=== PATIENT | female | born 1930 | race Caucasian/White ===

== ENCOUNTER 2017-01-22 11:23 | Emergency (ER) | payer MEDICARE ==
--- NOTE | 2017-01-22 14:29 | XR ---
EXAMINATION TYPE: XR shoulder limited RT DATE OF EXAM: 01/22/2017 COMPARISON: NONE HISTORY: Pain TECHNIQUE: Two views are submitted. FINDINGS: The osseous structures are intact. There is no acute fracture or dislocation. The AC joint is maint ained. Arthropathy of the AC joint. Apical pleural thickening with calcification. IMPRESSION: 1. No acute process.
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
--- NOTE | 2017-01-22 14:37 | XR ---
EXAMINATION TYPE: XR Hip Bilateral and AP pelvis DATE OF EXAM: 01/22/2017 COMPARISON: NONE HISTORY: Pain TECHNIQUE: A single AP view of the pelvis is obtained. Two views of the bilateral hip are obtained. FINDINGS: There is no acute fracture/dislocation evident in the pelvis. The hip and sacroiliac join ts appear symmetric and unremarkable. The overlying soft tissue appears unremarkable. Two views of bilateral hip show no acute fracture or dislocation. Postsurgical change left hip and co mplete loss of joint space with remodeling of the femoral head on the right. Surgical clips and vascu lar calcification seen in the soft tissues. Degenerative change lower lumbar spine. IMPRESSION: No definite acute fracture or dislocation. If clinical suspicion is high consider a CT sc an.
--- NOTE | 2017-01-22 15:31 | CT ---
EXAMINATION TYPE: CT hip RT wo con DATE OF EXAM: 01/22/2017 COMPARISON: NONE HISTORY: Patient complains of right hip pain while walking post fall. CT DLP: 319 mGycm Automated exposure control for dose reduction was used. FINDINGS: There is streak artifact through the pelvis due to a prosthetic left hip. There are fairly severe degenerative changes in the right hip. There is pseudocystic change, joint sp jeremías loss and subchondral cyst sclerosis. No fracture is seen. IMPRESSION: 1. NO ACUTE OSSEOUS LESION. 2. FAIRLY SEVERE DEGENERATIVE CHANGE. 3. STATUS POST LEFT HIP ARTHROPLASTY.
[2017-01-22 16:00] VITALS: BP 182/77; PULSE 60; RESP 18; TEMP 97.7
== END 2017-01-22 16:09 | disposition home or self-care (01) ==
LOC: EC 11:23
DX: M25.551 Pain in right hip (principal); M16.11 Unilateral primary osteoarthritis, right hip; E78.5 Hyperlipidemia, unspecified; I25.10 Atherosclerotic heart disease of native coronary artery without angina pectoris; Z79.82 Long term (current) use of aspirin; Z79.899 Other long term (current) drug therapy; V18.9XXA Unspecified pedal cyclist injured in noncollision transport accident in traffic accident, initial encounter
CPT/HCPCS: 73521; 99284

== ENCOUNTER 2017-01-24 14:00 | Emergency (ER) | payer MEDICARE ==
[2017-01-24 14:10] VITALS: BP 156/68; PULSE 54; RESP 18; TEMP 97.9
--- NOTE | 2017-01-24 14:41 | ED ---
General Adult HPI - General Chief complaint: Extremity Injury, Lower Stated complaint: right hip pain Time Seen by Provider: 01/24/17 14:23 Source: patient, RN notes reviewed Mode of arrival: wheelchair Limitations: no limitations - History of Present Illness Initial comments: Patient's an 86-year-old female who presents emergency room today with a chief complaint of increased pain to the right hip area. She does admit to a fall that occurred approximately one week ago. She states she was is good which fell to the left when she was going around a turn. She states a friend that was sitting next to it fell on top the right hip area. States she did have x- rays obtained at that time which were negative. She states her hip continue to bother her and she did follow-up the family doctor advised come here to the emergency room just 2 days ago. States she had a CAT scan obtained of the right hip which was negative. She states that began this morning she was having increased pain once again. She believes is because she was laying on that side that the pain began to become worse. Patient states been using Tylenol at home for pain. She denies any complaints or symptoms at this time. Patient denies any recent fever, chills, shortness of breath, chest pain, back pain, abdominal pain, nausea or vomiting, numbness or tingling, dysuria or hematuria, constipation or diarrhea, headaches or visual changes, or any other complaints. - Related Data Home Medications Medication Instructions Recorded Confirmed Aspirin 81 mg PO DAILY 03/15/14 01/18/15 Atorvastatin [Lipitor] 40 mg PO BID 03/15/14 01/18/15 Docusate Sodium [Stool Softener] 100 mg PO DAILY PRN 03/15/14 01/18/15 Fish Oil/Fat No.8/Hrb Comb.137 1,200 mg PO HS 03/15/14 01/18/15 [[place] 3-6-9 1,200 mg Softgel] Lansoprazole [Prevacid] 30 mg PO QAM 03/15/14 01/18/15 Nitroglycerin Sl Tabs [Nitrostat] 0.4 mg PO DIRECTED PRN 03/15/14 01/18/15 Ubidecarenone [Coq-10] 100 mg PO DAILY 03/15/14 01/18/15 Vit A/Vit C/Vit E/Zinc/Copper 1 tab PO DAILY 03/15/14 01/18/15 [ICAPS SOFTGEL] Calcium Carbonate/Vitamin D3 1 tab PO BID 03/27/14 01/18/15 [Caltrate 600 Plus D3 Tablet] Previous Rx's Medication Instructions Recorded Hydrocodone/Acetaminophen [[place] 1 - 2 each PO Q6HR PRN #40 tab 03/30/14 5-325] Ciprofloxacin HCl [Cipro] 500 mg PO Q12HR #10 tablet 01/19/15 Allergies Allergy/AdvReac Type Severity Reaction Status Date / Time codeine Allergy Unknown Verified 01/24/17 14:10 Review of Systems ROS Statement: Those systems with pertinent positive or pertinent negative responses have been documented in the HPI. ROS Other: All systems not noted in ROS Statement are negative. Past Medical History Past Medical History: Coronary Artery Disease (CAD), Cancer, Hyperlipidemia, Hypertension Additional Past Medical History / Comment(s): HX VARICOSE VEINS, LEFT BREAST CA History of Any Multi-Drug Resistant Organisms: None Reported Past Surgical History: Breast Surgery, Coronary Bypass/CABG, Heart Catheterization With Stent, Hernia Repair Additional Past Surgical History / Comment(s): CABG X4, INGUINAL HERNIA REPAIR, LEFT MASTECTOMY Past Anesthesia/Blood Transfusion Reactions: No Reported Reaction Date of Last Stent Placement:: UNKNOWN Past Psychological History: No Psychological Hx Reported Smoking Status: Never smoker Past Alcohol Use History: None Reported Past Drug Use History: None Reported - Past Family History Father Brother(s) Family Medical History: Cancer Additional Family Medical History / Comment(s): COLON Sister(s) Family Medical History: Cancer Additional Family Medical History / Comment(s): COLON, BREAST General Exam - General Exam Comments Initial Comments: General: The patient is awake and alert, in no distress, and does not appear acutely ill. Eye: Pupils are equal, round and reactive to light, extra-ocular movements are intact. No nystagmus. There is normal conjunctiva bilaterally. No signs of icterus. Ears, nose, mouth and throat: There are moist mucous membranes and no oral lesions. Neck: The neck is supple, there is no tenderness or JVD. Cardiovascular: There is a regular rate and rhythm. No murmur, rub or gallop is appreciated. Respiratory: Lungs are clear to auscultation, respirations are non-labored, breath sounds are equal. No wheezes, stridor, rales, or rhonchi. Gastrointestinal: Soft, non-distended, non-tender abdomen without masses or organomegaly noted. There is no rebound or guarding present. No CVA tenderness. Bowel sounds are unremarkable. Musculoskeletal: Normal ROM, no tenderness. Strength 5/5. Sensation intact. Pulses equal bilaterally 2+. Neurological: A&O x 3. CN II-XII intact, There are no obvious motor or sensory deficits. Coordination appears grossly intact. Speech is normal. Skin: Skin is warm and dry and no rashes or lesions are noted. Psychiatric: Cooperative, appropriate mood & affect, normal judgment. Limitations: no limitations Course Vital Signs 01/24/17 14:07 Temperature 97.9 F Pulse Rate 54 L Respiratory 18 Rate Blood Pressure 156/68 O2 Sat by Pulse 99 Oximetry Medical Decision Making - Medical Decision Making Patient's x-rays and CTs from previous visit were reviewed showing no acute fracture dislocation of the right hip. Results were discussed with the patient and family at bedside. She states that she was using ibuprofen earlier last week after the fall which did seem to help more than the Tylenol that she's been using lately. Patient states she is trying to see her orthopedic doctor but does not have an appointment until February 17. Patient states that she is going to try to follow-up with her family doctor this week. Was discussed about the options of trying to get an MRI of the right hip. Discussed with patient possibilities of admission. At this time she feels comfortable being discharged home advised patient to use ibuprofen as needed along with Tylenol for pain. Advised her to follow-up family doctor in orthopedics over the next week. Advised return if any symptoms increase or worsen or for any other concerns. Patient states understanding and is in agreement with this plan. Disposition Clinical Impression: Right hip pain Disposition: HOME SELF-CARE Condition: Good Instructions: Arthralgia (ED) Additional Instructions: Please use medication as discussed. Please follow-up with orthopedic/family doctor in the next 2 days of symptoms have not improved. Please return to emergency room if the symptoms increase or worsen or for any other concerns. Referrals: Braden Umana MD [Primary Care Provider] - 1-2 days Jac Rain DO [Doctor of Osteopathic Medicine] - 1-2 days Time of Disposition: 14:43
== END 2017-01-24 14:50 | disposition home or self-care (01) ==
LOC: EC 14:00
DX: M25.551 Pain in right hip (principal); I25.10 Atherosclerotic heart disease of native coronary artery without angina pectoris; E78.5 Hyperlipidemia, unspecified; I10 Essential (primary) hypertension; Z85.3 Personal history of malignant neoplasm of breast; Z95.1 Presence of aortocoronary bypass graft; Z88.5 Allergy status to narcotic agent; Z79.82 Long term (current) use of aspirin; Z79.899 Other long term (current) drug therapy; V00.831A Fall from motorized mobility scooter, initial encounter
CPT/HCPCS: 99283

== ENCOUNTER → 2017-03-12 | Outpatient (CLI) | payer MEDICARE ==
[2017-03-12 09:50] LABS: Basophils % (A) 0 %; CH 31.9; CHCM 33.2; Eosinophils # (A) 0.1 k/uL (0-0.7); Eosinophils % (A) 1 %; HCT 41.9 % (34.0-46.0); HDW 2.34; HGB 13.2 gm/dL (11.4-16.0); Luc # (Auto) 0.17; Luc % (Auto) 2; Lymphocytes # (A) 1.8 k/uL (1.0-4.8); Lymphocytes % (A) 26 %; MCH 30.5 pg (25.0-35.0); MCHC 31.6 g/dL (31.0-37.0); MCV 96.5 fL (80.0-100.0); Mean Platelet Volume 8.4; Monocytes # (A) 0.5 k/uL (0-1.0); Monocytes % (A) 7 %; Neutrophils # (A) 4.4 k/uL (1.3-7.7); Neutrophils % (A) 64 %; RBC 4.34 m/uL (3.80-5.40); RDW 15.6 % (11.5-15.5); WBC 6.9 k/uL (3.8-10.6); WBC (Perox) 6.67
[2017-03-12 09:54] LABS: ALT 33 U/L (9-52); AST 27 U/L (14-36); Alkaline Phosphatase 123 U/L (38-126); Anion Gap 7 mmol/L; Blood Urea Nitrogen 16 mg/dL (7-17); Calcium 9.2 mg/dL (8.4-10.2); Carbon Dioxide 30 mmol/L (22-30); Chloride 104 mmol/L (98-107); Cholesterol 148 mg/dL (<200); Glucose 91 mg/dL (74-99); HDL Cholesterol 49 mg/dL (40-60); Non-African American GFR(MDRD) >60 (>60 ml/min/1.73 sqM); Potassium 5.3 mmol/L (3.5-5.1); Sodium 141 mmol/L (137-145); Total Bilirubin 0.7 mg/dL (0.2-1.3)
== END | disposition home or self-care (01) ==
LOC: LABWHC1 09:11
PROVIDERS: ATTEND Internal Medicine
DX: E78.5 Hyperlipidemia, unspecified (principal); I10 Essential (primary) hypertension
CPT/HCPCS: 36415; 80053; 80061; 84439; 84443; 85025

== ENCOUNTER → 2017-11-19 | Outpatient (CLI) | payer MEDICARE ==
[2017-11-19 14:33] LABS: Basophils % (A) 0 %; Eosinophils # (A) 0.2 k/uL (0-0.7); Eosinophils % (A) 3 %; HCT 42.2 % (34.0-46.0); Lymphocytes # (A) 2.2 k/uL (1.0-4.8); Lymphocytes % (A) 31 %; MCH 30.5 pg (25.0-35.0); MCHC 33.2 g/dL (31.0-37.0); MCV 91.8 fL (80.0-100.0); Mean Platelet Volume 8.4; Monocytes # (A) 0.4 k/uL (0-1.0); Monocytes % (A) 6 %; Neutrophils # (A) 4.1 k/uL (1.3-7.7); Neutrophils % (A) 58 %; Platelet Count 129 k/uL (150-450); RBC 4.59 m/uL (3.80-5.40); WBC 7.2 k/uL (3.8-10.6)
[2017-11-19 16:27] LABS: Erythrocyte Sedimentation Rate 13 mm/hr (0-20)
[2017-11-20 14:30] LABS: C-ANCA <1:20 Titer (<1:20); P-ANCA <1:20 Titer (<1:20)
== END | disposition home or self-care (01) ==
LOC: LABWHC1 13:49
PROVIDERS: ATTEND Internal Medicine
DX: I77.6 Arteritis, unspecified (principal); D69.2 Other nonthrombocytopenic purpura
CPT/HCPCS: 36415; 85025; 85652; 86038; 86255

== ENCOUNTER → 2017-11-20 | Outpatient (CLI) | payer MEDICARE ==
[2017-11-20 14:23] LABS: Appearance,Urine Clear (Clear); Bilirubin,Urine Negative (Negative); Blood,Urine Negative (Negative); Color,Urine Light Yellow; Glucose,Urine (UA) Negative (Negative); Ketones,Urine Negative (Negative); Leukocyte Esterase,Urine Negative (Negative); Nitrite,Urine Negative (Negative); Protein,Urine Negative (Negative); Specific Gravity,Urine 1.008 (1.001-1.035); Urobilinogen,Urine <2.0 mg/dL (<2.0)
[2017-11-20 14:45] LABS: Potassium 4.4 mmol/L (3.5-5.1); Total Bilirubin 0.6 mg/dL (0.2-1.3); Total Protein 6.7 g/dL (6.3-8.2)
== END | disposition home or self-care (01) ==
LOC: LABWHC1 13:38
PROVIDERS: ATTEND Physician Assistant
DX: I77.6 Arteritis, unspecified (principal)
CPT/HCPCS: 36415; 80053; 81003

== ENCOUNTER 2017-12-09 01:58 | Inpatient (IN) | payer MEDICARE ==
[2017-12-09] MEDS ORDERED: SODIUM CHLORIDE 0.9% 1,000 ML IV STA (02:02)
[2017-12-09] MEDS ORDERED: METOPROLOL TARTRATE 5 MG/5 ML VIAL IVP STA (02:02)
[2017-12-09 02:40] LABS: Basophils % (A) 0 %; Eosinophils # (A) 0.2 k/uL (0-0.7); Eosinophils % (A) 2 %; HCT 44.7 % (34.0-46.0); Lymphocytes # (A) 1.6 k/uL (1.0-4.8); Lymphocytes % (A) 20 %; MCH 30.8 pg (25.0-35.0); MCHC 33.6 g/dL (31.0-37.0); MCV 91.7 fL (80.0-100.0); Mean Platelet Volume 7.9; Monocytes # (A) 0.6 k/uL (0-1.0); Monocytes % (A) 7 %; Neutrophils # (A) 5.5 k/uL (1.3-7.7); Neutrophils % (A) 69 %; Platelet Count 121 k/uL (150-450); RBC 4.88 m/uL (3.80-5.40); RDW 14.3 % (11.5-15.5)
[2017-12-09 02:50] LABS: Albumin 3.9 g/dL (3.5-5.0); Calcium 9.3 mg/dL (8.4-10.2); Magnesium 1.9 mg/dL (1.6-2.3); Total Bilirubin 0.5 mg/dL (0.2-1.3); Total Protein 6.7 g/dL (6.3-8.2)
[2017-12-09 02:54] LABS: Partial Thromboplastin Time 23.8 sec (22.0-30.0); Prothrombin Time 10.2 sec (9.0-12.0)
--- NOTE | 2017-12-09 02:54 | XR ---
EXAMINATION TYPE: XR chest 2V DATE OF EXAM: 12/09/2017 COMPARISON: 03/29/2014 HISTORY: Chest pain TECHNIQUE: Frontal and lateral views of the chest are obtained. FINDINGS: There is no heart failure nor confluent pneumonic infiltrate. There is slight coarsening o f interstitial markings. There are chest leads. There are sternal wires. IMPRESSION: Mild pulmonary fibrosis. No active cardiopulmonary disease. No change.
[2017-12-09 02:59] LABS: D-Dimer 0.93 mg/L FEU (<0.60)
[2017-12-09] MEDS ORDERED: RX INFO: IV CONTRAST WAS GIVEN 1 EACH MISC MISCELLANE PRN (03:01)
[2017-12-09 03:13] LABS: Troponin I 0.033 ng/mL (0.000-0.034)
--- NOTE | 2017-12-09 03:42 | CT ---
EXAMINATION TYPE: CT angio chest DATE OF EXAM: 12/09/2017 3:29 AM COMPARISON: NONE HISTORY: Chest pain, R/O PE CT DLP: 148.10 mGycm Automated exposure control for dose reduction was used. CONTRAST: CTA scan of the thorax is performed with IV Contrast, patient injected with 75 mL of Isovue 370, pulm onary embolism protocol. . FINDINGS: There are 3-D post processed images. There is some coarsening of interstitial pulmonary markings. There is no evidence of a pulmonary mass . There is no pleural effusion. Thoracic aorta is atheromatous. Heart size is normal. There is no per icardial effusion. There is normal contrast opacification of the pulmonary arteries. I see no filling defect. There are a few paratracheal lymph nodes that measure up to 1.4 cm. There are bronchial lymp h nodes that measure less than 1 cm. The bony thorax is intact. IMPRESSION: PULMONARY INTERSTITIAL FIBROTIC CHANGES. NONSPECIFIC MEDIASTINAL LYMPH NODES. NO EVIDENCE OF PULMONARY EMBOLISM. ATHEROMATOUS AORTA.
--- NOTE | 2017-12-09 03:50 | ED ---
General Adult HPI - General Chief complaint: Chest Pain Stated complaint: Cardiac Issues Time Seen by Provider: 12/09/17 02:02 Source: patient, EMS, RN notes reviewed, old records reviewed Mode of arrival: EMS Limitations: no limitations - History of Present Illness Initial comments: This is an 79-year-old female the ER for evaluation of chest pain. History of heart disease history of CABG. Patient states her heart feels like is racing, she can't catch her breath. Patient denies history of atrial fibrillation. Patient states that she has improvement in her chest pain upon arrival to the hospital, the pain started about an hour prior to coming in and woke her from sleep - Related Data Home Medications Medication Instructions Recorded Confirmed Aspirin 81 mg PO DAILY 03/15/14 12/09/17 Atorvastatin [Lipitor] 40 mg PO BID 03/15/14 12/09/17 Fish Oil/Fat No.8/Hrb Comb.137 1,200 mg PO DAILY 03/15/14 12/09/17 [[place] 3-6-9 1,200 mg Softgel] Lansoprazole [Prevacid] 30 mg PO QAM 03/15/14 12/09/17 Ubidecarenone [Coq-10] 200 mg PO DAILY 03/15/14 12/09/17 Vit A/Vit C/Vit E/Zinc/Copper 1 tab PO DAILY 03/15/14 12/09/17 [ICAPS SOFTGEL] Ascorbic Acid [Vitamin C] 1,000 mg PO DAILY 01/24/17 12/09/17 Atenolol [Tenormin] 12.5 mg PO DAILY 01/24/17 12/09/17 Cholecalciferol [Vitamin D3] 1,000 unit PO DAILY 01/24/17 12/09/17 Cyanocobalamin (Vitamin B-12) 1,000 mcg PO DAILY 01/24/17 12/09/17 [Vitamin B-12] Allergies Allergy/AdvReac Type Severity Reaction Status Date / Time codeine Allergy Unknown Verified 01/24/17 14:47 Review of Systems ROS Statement: Those systems with pertinent positive or pertinent negative responses have been documented in the HPI. ROS Other: All systems not noted in ROS Statement are negative. Past Medical History Past Medical History: Coronary Artery Disease (CAD), Cancer, Hyperlipidemia, Hypertension Additional Past Medical History / Comment(s): HX VARICOSE VEINS, LEFT BREAST CA History of Any Multi-Drug Resistant Organisms: None Reported Past Surgical History: Breast Surgery, Coronary Bypass/CABG, Heart Catheterization With Stent, Hernia Repair, Orthopedic Surgery Additional Past Surgical History / Comment(s): CABG X4, INGUINAL HERNIA REPAIR, LEFT MASTECTOMY, L hip replacement. Past Anesthesia/Blood Transfusion Reactions: No Reported Reaction Date of Last Stent Placement:: UNKNOWN Past Psychological History: No Psychological Hx Reported Smoking Status: Never smoker Past Alcohol Use History: None Reported Past Drug Use History: None Reported - Past Family History Father Brother(s) Family Medical History: Cancer Additional Family Medical History / Comment(s): COLON Sister(s) Family Medical History: Cancer Additional Family Medical History / Comment(s): COLON, BREAST General Exam Limitations: no limitations General appearance: alert, in no apparent distress, anxious Head exam: Present: atraumatic, normocephalic, normal inspection Eye exam: Present: normal appearance, PERRL, EOMI. Absent: scleral icterus, conjunctival injection, periorbital swelling ENT exam: Present: normal exam, mucous membranes moist Neck exam: Present: normal inspection. Absent: tenderness, meningismus, lymphadenopathy Respiratory exam: Present: normal lung sounds bilaterally. Absent: respiratory distress, wheezes, rales, rhonchi, stridor Cardiovascular Exam: Present: tachycardia, irregular rhythm, normal heart sounds. Absent: systolic murmur, diastolic murmur, rubs, gallop, clicks GI/Abdominal exam: Present: soft, normal bowel sounds. Absent: distended, tenderness, guarding, rebound, rigid Extremities exam: Present: normal inspection, full ROM, normal capillary refill. Absent: tenderness, pedal edema, joint swelling, calf tenderness Back exam: Present: normal inspection Neurological exam: Present: alert, oriented X3, CN II-XII intact Psychiatric exam: Present: normal affect, normal mood Skin exam: Present: warm, dry, intact, normal color. Absent: rash Course Vital Signs 12/09/17 12/09/17 12/09/17 01:59 02:21 03:50 Temperature 97 F L Pulse Rate 124 H 69 66 Respiratory 18 18 18 Rate Blood Pressure 157/91 146/70 O2 Sat by Pulse 94 L 98 Oximetry - Reevaluation(s) Reevaluation #1: Medical record is reviewed EKG Findings - EKG Comments: EKG Findings:: EKG shows A. fib with RVR rate 135, QRS 124, QTc 435 Medical Decision Making - Medical Decision Making 79 female at ER with chest pain left atrial fibrillation with RVR we'll anticoagulate and admit for cardiology to see - Lab Data Result diagrams: 12/09/17 02:30 12/09/17 02:30 Lab Results 12/09/17 12/09/17 12/09/17 Range/Units 02:30 02:30 02:30 WBC 8.0 (3.8-10.6) k/uL RBC 4.88 (3.80-5.40) m/uL Hgb 15.0 (11.4-16.0) gm/dL Hct 44.7 (34.0-46.0) % MCV 91.7 (80.0-100.0) fL MCH 30.8 (25.0-35.0) pg MCHC 33.6 (31.0-37.0) g/dL RDW 14.3 (11.5-15.5) % Plt Count 121 L (150-450) k/uL Neutrophils % 69 % Lymphocytes % 20 % Monocytes % 7 % Eosinophils % 2 % Basophils % 0 % Neutrophils # 5.5 (1.3-7.7) k/uL Lymphocytes # 1.6 (1.0-4.8) k/uL Monocytes # 0.6 (0-1.0) k/uL Eosinophils # 0.2 (0-0.7) k/uL Basophils # 0.0 (0-0.2) k/uL PT (9.0-12.0) sec INR (<1.2) APTT (22.0-30.0) sec D-Dimer (<0.60) mg/L FEU Sodium 142 (137-145) mmol/L Potassium 4.0 (3.5-5.1) mmol/L Chloride 100 (98-107) mmol/L Carbon Dioxide 29 (22-30) mmol/L Anion Gap 13 mmol/L BUN 25 H (7-17) mg/dL Creatinine 1.00 (0.52-1.04) mg/dL Est GFR (CKD-EPI)AfAm 59 (>60 ml/min/1.73 sqM) Est GFR (CKD-EPI)NonAf 51 (>60 ml/min/1.73 sqM) Glucose 100 H (74-99) mg/dL Calcium 9.3 (8.4-10.2) mg/dL Magnesium 1.9 (1.6-2.3) mg/dL Total Bilirubin 0.5 (0.2-1.3) mg/dL AST 28 (14-36) U/L ALT 34 (9-52) U/L Alkaline Phosphatase 104 (38-126) U/L Total Creatine Kinase 70 (30-135) U/L CK-MB (CK-2) 1.0 (0.0-2.4) ng/mL CK-MB (CK-2) Rel Index 1.4 Troponin I 0.033 (0.000-0.034) ng/mL NT-Pro-B Natriuret Pep pg/mL Total Protein 6.7 (6.3-8.2) g/dL Albumin 3.9 (3.5-5.0) g/dL Lipase 228 (23-300) U/L 12/09/17 12/09/17 Range/Units 02:30 02:30 WBC (3.8-10.6) k/uL RBC (3.80-5.40) m/uL Hgb (11.4-16.0) gm/dL Hct (34.0-46.0) % MCV (80.0-100.0) fL MCH (25.0-35.0) pg MCHC (31.0-37.0) g/dL RDW (11.5-15.5) % Plt Count (150-450) k/uL Neutrophils % % Lymphocytes % % Monocytes % % Eosinophils % % Basophils % % Neutrophils # (1.3-7.7) k/uL Lymphocytes # (1.0-4.8) k/uL Monocytes # (0-1.0) k/uL Eosinophils # (0-0.7) k/uL Basophils # (0-0.2) k/uL PT 10.2 (9.0-12.0) sec INR 1.0 (<1.2) APTT 23.8 (22.0-30.0) sec D-Dimer 0.93 H (<0.60) mg/L FEU Sodium (137-145) mmol/L Potassium (3.5-5.1) mmol/L Chloride (98-107) mmol/L Carbon Dioxide (22-30) mmol/L Anion Gap mmol/L BUN (7-17) mg/dL Creatinine (0.52-1.04) mg/dL Est GFR (CKD-EPI)AfAm (>60 ml/min/1.73 sqM) Est GFR (CKD-EPI)NonAf (>60 ml/min/1.73 sqM) Glucose (74-99) mg/dL Calcium (8.4-10.2) mg/dL Magnesium (1.6-2.3) mg/dL Total Bilirubin (0.2-1.3) mg/dL AST (14-36) U/L ALT (9-52) U/L Alkaline Phosphatase (38-126) U/L Total Creatine Kinase (30-135) U/L CK-MB (CK-2) (0.0-2.4) ng/mL CK-MB (CK-2) Rel Index Troponin I (0.000-0.034) ng/mL NT-Pro-B Natriuret Pep 762 pg/mL Total Protein (6.3-8.2) g/dL Albumin (3.5-5.0) g/dL Lipase (23-300) U/L - Radiology Data Radiology results: report reviewed (Chest x-ray CTA chest negative for acute disease), image reviewed Critical Care Time Critical Care Time: Yes Total Critical Care Time: 31 Disposition Clinical Impression: Chest pain, Atrial fibrillation with RVR Disposition: ADMITTED IP TO THIS HOSP Condition: Fair
[2017-12-09] MEDS ORDERED: ASPIRIN 81 MG PO STA (04:01)
[2017-12-09] MEDS ORDERED: HEPARIN SODIUM,PORCINE 5,000 UNIT/ML 1 ML VIAL IV PRN (04:01)
[2017-12-09] MEDS ORDERED: HEPARIN SODIUM,PORCINE 5,000 UNIT/ML 1 ML VIAL IV ONE (04:01)
[2017-12-09] MEDS ORDERED: NITROGLYCERIN SL TABS 0.4 MG TAB SUBLINGUAL PRN (04:01)
[2017-12-09] MEDS: HEPARIN SODIUM,PORCINE/D5W PMX 25,000 UNIT in DEXTROSE/WATER 1 500ML.BAG IV SCH (05:08)
[2017-12-09 08:57] LABS: Mean Platelet Volume 7.5; Platelet Count 116 k/uL (150-450)
[2017-12-09 09:29] LABS: Creatine Kinase MB 1.4 ng/mL (0.0-2.4)
[2017-12-09 09:34] VITALS: BMI 19.6
[2017-12-09 09:35] LABS: Troponin I 0.08 ng/mL (0.000-0.034)
--- NOTE | 2017-12-09 12:44 | P.CNPUL ---
History of Present Illness Consult date: 12/09/17 Reason for consult: dyspnea, chest pain, other Chief complaint: New-onset atrial fibrillation History of present illness: Consult dated 12/09/2017 This is an 79-year-old female sees my partner is her primary. She presented to the emergency department for rapid heartbeat and palpitations and chest pain which seemed to radiate to the back. She apparently was discovered to have a new onset atrial fibrillation with rapid ventricular response. States that she was short of breath as well. Does have a history of previous bypass grafting in 2012. Since that time, the patient was started on medication to control her heart rhythm and rate she's feeling much better. She was hoping to be able to be discharged issues things that she needs to do. She apparently was planning a luncheon for a friend today. She has a history of coronary artery disease, status post bypass grafting hyperlipidemia hypertension left breast cancer varicose veins and multiple surgeries including heart catheterization with stent bypass grafting mastectomy hernia repair and orthopedic procedures including left hip replacement. Social history negative for tobacco use. Chest x-ray in the emergency department showed mostly normal findings with minimal interstitial changes and CAT scan was negative for pulmonary embolism but did in fact show some minimal basilar interstitial changes consistent with possible mild pulmonary fibrosis. Review of Systems A 12 point review of system is positive for shortness of breath chest pain or difficulty breathing palpitations or rapid heartbeat, etc. Past Medical History Past Medical History: Coronary Artery Disease (CAD), Cancer, Hyperlipidemia, Hypertension Additional Past Medical History / Comment(s): HX VARICOSE VEINS, LEFT BREAST CA History of Any Multi-Drug Resistant Organisms: None Reported Past Surgical History: Breast Surgery, Coronary Bypass/CABG, Heart Catheterization With Stent, Hernia Repair, Orthopedic Surgery Additional Past Surgical History / Comment(s): CABG X4, INGUINAL HERNIA REPAIR, LEFT MASTECTOMY, L hip replacement. Past Anesthesia/Blood Transfusion Reactions: No Reported Reaction Date of Last Stent Placement:: UNKNOWN Past Psychological History: No Psychological Hx Reported Smoking Status: Never smoker Past Alcohol Use History: None Reported Past Drug Use History: None Reported - Past Family History Father Brother(s) Family Medical History: Cancer Additional Family Medical History / Comment(s): COLON Sister(s) Family Medical History: Cancer Additional Family Medical History / Comment(s): COLON, BREAST Medications and Allergies Home Medications Medication Instructions Recorded Confirmed Type Aspirin 81 mg PO DAILY 03/15/14 12/09/17 History Atorvastatin [Lipitor] 40 mg PO BID 03/15/14 12/09/17 History Fish Oil/Fat No.8/Hrb Comb.137 1,200 mg PO DAILY 03/15/14 12/09/17 History [[place] 3-6-9 1,200 mg Softgel] Lansoprazole [Prevacid] 30 mg PO QAM 03/15/14 12/09/17 History Ubidecarenone [Coq-10] 200 mg PO DAILY 03/15/14 12/09/17 History Vit A/Vit C/Vit E/Zinc/Copper 1 tab PO DAILY 03/15/14 12/09/17 History [ICAPS SOFTGEL] Ascorbic Acid [Vitamin C] 1,000 mg PO DAILY 01/24/17 12/09/17 History Atenolol [Tenormin] 12.5 mg PO DAILY 01/24/17 12/09/17 History Cyanocobalamin (Vitamin B-12) 1,000 mcg PO DAILY 01/24/17 12/09/17 History [Vitamin B-12] Calcium Carbonate [Calcium] 600 mg PO BID 12/09/17 12/09/17 History Allergies Allergy/AdvReac Type Severity Reaction Status Date / Time codeine Allergy Unknown Verified 12/09/17 07:34 Physical Exam Osteopathic Statement: *. No significant issues noted on an osteopathic structural exam other than those noted in the History and Physical/Consult. Vitals: Vital Signs Temp Pulse Pulse Resp BP BP Pulse Ox 12/09/17 11:19 66 18 145/60 97 12/09/17 09:23 84 16 127/60 97 12/09/17 03:50 66 18 146/70 98 12/09/17 02:21 69 18 12/09/17 01:59 97 F L 124 H 18 157/91 94 L Intake and Output 12/08/17 12/09/17 12/09/17 22:59 06:59 14:59 Intake Total 84.651 Balance 84.651 Intake: Intake, IV Titration 84.651 Amount Heparin Sodium,Porcine/ 84.651 D5w Pmx 25,000 unit In Dextrose/Water 1 500ml. bag @ 12 UNITS/KG/HR 12. 51 mls/hr IV .Q24H [facility] Rx #:[id number] Other: Weight 52.163 kg 52 kg No acute distress, oriented 3. HEENT examination is grossly unremarkable. Mucous membranes are moist. No oral lesions. Neck supple. Full range of motion. No adenopathy thyromegaly or neck vein distention. Cardiovascular examination reveals regular rhythm rate. S1-S2 normal. No S3 or S4. No discernible murmur noted. She is in sinus rhythm. Lungs reveal clear breath sounds. Her sounds are equal bilaterally. No adventitious lung sounds including wheezes rhonchi or crackles. Abdomen soft bowel sounds are heard. No masses or tenderness. Extremities are intact. No cyanosis clubbing or edema. Skin is without rash or lesion. Neurologic examination is brief but nonfocal. Results - Laboratory Findings CBC and BMP: 12/09/17 08:47 12/09/17 02:30 PT/INR, D-dimer PT 10.2 sec (9.0-12.0) 12/09/17 02:30 INR 1.0 (<1.2) 12/09/17 02:30 D-Dimer 0.93 mg/L FEU (<0.60) H 12/09/17 02:30 Abnormal lab findings: Abnormal Labs 12/09/17 12/09/17 12/09/17 02:30 02:30 02:30 Plt Count 121 L APTT D-Dimer 0.93 H BUN 25 H Glucose 100 H Troponin I 12/09/17 12/09/17 12/09/17 08:38 08:47 11:01 Plt Count 116 L APTT 64.3 H D-Dimer BUN Glucose Troponin I 0.080 H* - Diagnostic Findings Chest x-ray: image reviewed CT scan - chest: image reviewed (Chest x-ray labs and medications are reviewed. CAT scan of the chest was reviewed.) Assessment and Plan Assessment: Assessment New-onset atrial fibrillation History of CAD, status post bypass grafting and stent placement History of breast cancer, status post left mastectomy Hyperlipidemia Hypertension Multiple orthopedic procedures Lifelong nonsmoker Status post left inguinal hernia repair Status post left hip replacement Mild interstitial lung disease/pulmonary fibrosis by chest x-ray/computed tomography scan. Plan: Plan dated 12/09/2017 From the pulmonary standpoint, the patient's very stable. We'll await cardiology's input. The patient has converted from atrial fibrillation back into sinus rhythm. She remains on a heparin drip. Additional recommendations and suggestions are forthcoming. She will need follow-up with Dr. Umana post discharge as he is her primary doctor. Time with Patient: Greater than 30
[2017-12-09] MEDS: METOPROLOL TARTRATE 25 MG TAB PO SCH ×2 (13:44→20:40)
--- NOTE | 2017-12-09 15:06 | P.HPIM ---
History of Present Illness 87-year-old pleasant female came in with complaints of chest pressure like sensation which started yesterday evening lasted for about half an hour about 8/ in severity radiating to the back associated diaphoresis denied any pleuritic pain denied any fever chills nausea vomiting. Patient had coronary artery disease with a CABG in the past. Patient is found to have atrial fibrillation with rapid and regular rate patient was given Cardizem after which patient spontaneously converted to sinus rhythm and the patient uses atenolol at home which is being switched to metoprolol. Patient is presently sinus rhythm with heart rate of 66 patient will be started on metoprolol and instead of atenolol patient was started on IV heparin facet of troponin is 0.02 second set was 0.[address]-T wave changes on the EKG. Consulted patient does have history of pulmonary fibrosis CT angios of the chest is showing pulmonary fibrosis without any other significant changes or pulmonary embolism. Review of Systems REVIEW OF SYSTEMS: CONSTITUTIONAL: No fever, no malaise, no fatigue. HEENT: No recent visual problems or hearing problems. Denied any sore throat. CARDIOVASCULAR: No orthopnea, PND, no palpitations, no syncope. PULMONARY: No shortness of breath, no cough, no hemoptysis. GASTROINTESTINAL: No diarrhea, no nausea, no vomiting, no abdominal pain. Normoactive bowel sounds. NEUROLOGICAL: No headaches, no weakness, no numbness. HEMATOLOGICAL: Denies any bleeding or petechiae. GENITOURINARY: Denies any burning micturition, frequency, or urgency. MUSCULOSKELETAL/RHEUMATOLOGICAL: Denies any joint pain, swelling, or any muscle pain. ENDOCRINE: Denies any polyuria or polydipsia. The rest of the 14-point review of systems is negative. Past Medical History Past Medical History: Coronary Artery Disease (CAD), Cancer, Hyperlipidemia, Hypertension Additional Past Medical History / Comment(s): HX VARICOSE VEINS, LEFT BREAST CA History of Any Multi-Drug Resistant Organisms: None Reported Past Surgical History: Breast Surgery, Coronary Bypass/CABG, Heart Catheterization With Stent, Hernia Repair, Orthopedic Surgery Additional Past Surgical History / Comment(s): CABG X4, INGUINAL HERNIA REPAIR, LEFT MASTECTOMY, L hip replacement. Past Anesthesia/Blood Transfusion Reactions: No Reported Reaction Date of Last Stent Placement:: UNKNOWN Past Psychological History: No Psychological Hx Reported Smoking Status: Never smoker Past Alcohol Use History: None Reported Past Drug Use History: None Reported - Past Family History Father Brother(s) Family Medical History: Cancer Additional Family Medical History / Comment(s): COLON Sister(s) Family Medical History: Cancer Additional Family Medical History / Comment(s): COLON, BREAST Medications and Allergies Home Medications Medication Instructions Recorded Confirmed Type Aspirin 81 mg PO DAILY 03/15/14 12/09/17 History Atorvastatin [Lipitor] 40 mg PO BID 03/15/14 12/09/17 History Fish Oil/Fat No.8/Hrb Comb.137 1,200 mg PO DAILY 03/15/14 12/09/17 History [[place] 3-6-9 1,200 mg Softgel] Lansoprazole [Prevacid] 30 mg PO QAM 03/15/14 12/09/17 History Ubidecarenone [Coq-10] 200 mg PO DAILY 03/15/14 12/09/17 History Vit A/Vit C/Vit E/Zinc/Copper 1 tab PO DAILY 03/15/14 12/09/17 History [ICAPS SOFTGEL] Ascorbic Acid [Vitamin C] 1,000 mg PO DAILY 01/24/17 12/09/17 History Atenolol [Tenormin] 12.5 mg PO DAILY 01/24/17 12/09/17 History Cyanocobalamin (Vitamin B-12) 1,000 mcg PO DAILY 01/24/17 12/09/17 History [Vitamin B-12] Calcium Carbonate [Calcium] 600 mg PO BID 12/09/17 12/09/17 History Allergies Allergy/AdvReac Type Severity Reaction Status Date / Time codeine Allergy Unknown Verified 12/09/17 07:34 Physical Exam Vitals: Vital Signs Temp Pulse Pulse Resp BP BP Pulse Ox 12/09/17 12:41 55 L 18 12/09/17 12:30 97.5 F L 55 L 18 125/62 97 12/09/17 11:19 66 18 145/60 97 12/09/17 09:23 84 16 127/60 97 12/09/17 03:50 66 18 146/70 98 12/09/17 02:21 69 18 12/09/17 01:59 97 F L 124 H 18 157/91 94 L Intake and Output 12/09/17 12/09/17 12/09/17 06:59 14:59 22:59 Intake Total 84.651 Balance 84.651 Intake: Intake, IV Titration 84.651 Amount Heparin Sodium,Porcine/ 84.651 D5w Pmx 25,000 unit In Dextrose/Water 1 500ml. bag @ 12 UNITS/KG/HR 12. 51 mls/hr IV .Q24H [facility] Rx #:[id number] Other: Weight 52.163 kg 52 kg PHYSICAL EXAMINATION: GENERAL: The patient is alert and oriented x3, not in any acute distress. Well developed, well nourished. HEENT: Pupils are round and equally reacting to light. EOMI. No scleral icterus. No conjunctival pallor. Normocephalic, atraumatic. No pharyngeal erythema. No thyromegaly. CARDIOVASCULAR: S1 and S2 present. No murmurs, rubs, or gallops. PULMONARY: Chest is clear to auscultation, no wheezing or crackles. ABDOMEN: Soft, nontender, nondistended, normoactive bowel sounds. No palpable organomegaly. MUSCULOSKELETAL: No joint swelling or deformity. EXTREMITIES: No cyanosis, clubbing, or pedal edema. NEUROLOGICAL: Gross neurological examination did not reveal any focal deficits. SKIN: No rashes. Results CBC & Chem 7: 12/09/17 08:47 12/09/17 02:30 Labs: Abnormal Lab Results - Last 24 Hours (Table) 12/09/17 12/09/17 12/09/17 Range/Units 02:30 02:30 02:30 Plt Count 121 L (150-450) k/uL APTT (22.0-30.0) sec D-Dimer 0.93 H (<0.60) mg/L FEU BUN 25 H (7-17) mg/dL Glucose 100 H (74-99) mg/dL Troponin I (0.000-0.034) ng/mL 12/09/17 12/09/17 12/09/17 Range/Units 08:38 08:47 11:01 Plt Count 116 L (150-450) k/uL APTT 64.3 H (22.0-30.0) sec D-Dimer (<0.60) mg/L FEU BUN (7-17) mg/dL Glucose (74-99) mg/dL Troponin I 0.080 H* (0.000-0.034) ng/mL Thrombosis Risk Factor Assmnt - Choose All That Apply Any of the Below Risk Factors Present?: Yes Each Factor Represents 1 point: Swollen legs (current) Each Risk Factor Represents 3 Points: Age 75 years or older Thrombosis Risk Factor Assessment Total Risk Factor Score: 4 Thrombosis Risk Factor Assessment Level: Moderate Risk Assessment and Plan Plan: -Atrial fibrillation with rapid and regular rate new onset presently rate controlled after Cardizem patient will be started on metoprolol 25 twice a day. -Possible non-ST elevation myocardial infarction or mild elevation of troponin secondary to atrial fibrillation: Repeat troponin will be obtained patient may need either cardiac catheterization or stress testing depending on the third troponin. Decision as per cardiology. -Coronary artery disease with history of CABG in the past -Breast cancer status post mastectomy -Pulmonary fibrosis without any oxygen requirement at home -Hyperlipidemia Hypertension
[2017-12-09 15:31] LABS: Creatine Kinase MB 1.1 ng/mL (0.0-2.4)
[2017-12-09 15:32] LABS: Troponin I 0.045 ng/mL (0.000-0.034)
[2017-12-09] MEDS: ATORVASTATIN 40 MG TAB PO SCH (20:40)
[2017-12-10] MEDS: HEPARIN SODIUM,PORCINE/D5W PMX 25,000 UNIT in DEXTROSE/WATER 1 500ML.BAG IV SCH (06:02)
[2017-12-10 06:16] LABS: HGB 13.4 gm/dL (11.4-16.0); MCH 30.6 pg (25.0-35.0); MCHC 32.6 g/dL (31.0-37.0); MCV 93.9 fL (80.0-100.0); Mean Platelet Volume 8.3; Platelet Count 103 k/uL (150-450); RBC 4.36 m/uL (3.80-5.40); RDW 14.5 % (11.5-15.5); WBC 6.1 k/uL (3.8-10.6)
[2017-12-10 06:22] LABS: Anion Gap 11 mmol/L; Blood Urea Nitrogen 15 mg/dL (7-17); Calcium 8.2 mg/dL (8.4-10.2); Carbon Dioxide 22 mmol/L (22-30); Chloride 108 mmol/L (98-107); Cholesterol 157 mg/dL (<200); Glucose 79 mg/dL (74-99); HDL Cholesterol 65 mg/dL (40-60); LDL Cholesterol,Calculated 79 mg/dL (0-99); Potassium 3.8 mmol/L (3.5-5.1); Sodium 141 mmol/L (137-145); Triglycerides 67 mg/dL (<150)
[2017-12-10] MEDS ORDERED: PANTOPRAZOLE 40 MG TABLET PO SCH (07:30)
[2017-12-10 07:57] VITALS: BP 134/64; PULSE 59; RESP 16; TEMP 97.6
[2017-12-10] MEDS: METOPROLOL TARTRATE 25 MG TAB PO SCH (08:14)
[2017-12-10] MEDS: ATORVASTATIN 40 MG TAB PO SCH (08:14)
--- NOTE | 2017-12-10 08:31 | P.CRDCN ---
History of Present Illness Consult date: 12/10/17 Requesting physician: Sabiha Huitron Consult reason: chest pain, atrial fibrillation Chief complaint: Chest pain History of present illness: This is a pleasant 87-year-old female who follows regularly with Dr. Miller in the office. She has a known history of coronary artery disease with prior bypass surgery in 2012, hyperlipidemia, hypertension. She resides at [facility]. She presented to the hospital with a fairly sudden onset of chest pressure and heaviness which radiated through to her back and into her bilateral shoulders. On presentation here her EKG showed atrial fibrillation with a rapid ventricular response. Chest x-ray on presentation here showed mild pulmonary fibrosis. No active cardiopulmonary disease. CTA of the chest revealed pulmonary interstitial fibrotic changes and nonspecific mediastinal lymph nodes. No evidence of pulmonary embolism. EKG on presentation here showed atrial fibrillation with a rapid ventricular response. Patient has since converted to a normal sinus rhythm, her subsequent EKG postconversion shows sinus bradycardia with PACs and ST-T wave changes noted in the anterior leads. The pressure on arrival here 158/90, heart rate 130s, 94% on room air. Blood pressure this morning was 3464 with a heart rate of 60, temperature 97.6 she is 98% on room air. White blood cell count 6.1, hemoglobin 13.4, platelet count on admission 116, 103 this morning. D-dimer 0.93. Sodium 141, potassium 3.8, BUN 15, creatinine 0.7. Troponins 0.033, 0.080, 0.045. Patient is currently on a full aspirin, Lipitor 40 twice a day, heparin, metoprolol 25 twice a day. We will decrease aspirin 81 mg daily, decrease her Lipitor to once daily. We will also obtain an echocardiogram with Doppler study this morning. Past Medical History Past Medical History: Coronary Artery Disease (CAD), Cancer, Hyperlipidemia, Hypertension Additional Past Medical History / Comment(s): HX VARICOSE VEINS, LEFT BREAST CA History of Any Multi-Drug Resistant Organisms: None Reported Past Surgical History: Breast Surgery, Coronary Bypass/CABG, Heart Catheterization With Stent, Hernia Repair, Orthopedic Surgery Additional Past Surgical History / Comment(s): CABG X4, INGUINAL HERNIA REPAIR, LEFT MASTECTOMY, L hip replacement. Past Anesthesia/Blood Transfusion Reactions: No Reported Reaction Date of Last Stent Placement:: UNKNOWN Past Psychological History: No Psychological Hx Reported Smoking Status: Never smoker Past Alcohol Use History: None Reported Past Drug Use History: None Reported - Past Family History Father Brother(s) Family Medical History: Cancer Additional Family Medical History / Comment(s): COLON Sister(s) Family Medical History: Cancer Additional Family Medical History / Comment(s): COLON, BREAST Medications and Allergies Home Medications Medication Instructions Recorded Confirmed Type Aspirin 81 mg PO DAILY 03/15/14 12/09/17 History Atorvastatin [Lipitor] 40 mg PO BID 03/15/14 12/09/17 History Fish Oil/Fat No.8/Hrb Comb.137 1,200 mg PO DAILY 03/15/14 12/09/17 History [[place] 3-6-9 1,200 mg Softgel] Lansoprazole [Prevacid] 30 mg PO QAM 03/15/14 12/09/17 History Ubidecarenone [Coq-10] 200 mg PO DAILY 03/15/14 12/09/17 History Vit A/Vit C/Vit E/Zinc/Copper 1 tab PO DAILY 03/15/14 12/09/17 History [ICAPS SOFTGEL] Ascorbic Acid [Vitamin C] 1,000 mg PO DAILY 01/24/17 12/09/17 History Atenolol [Tenormin] 12.5 mg PO DAILY 01/24/17 12/09/17 History Cyanocobalamin (Vitamin B-12) 1,000 mcg PO DAILY 01/24/17 12/09/17 History [Vitamin B-12] Calcium Carbonate [Calcium] 600 mg PO BID 12/09/17 12/09/17 History Allergies Allergy/AdvReac Type Severity Reaction Status Date / Time codeine Allergy Unknown Verified 12/09/17 07:34 Physical Exam Vitals: Vital Signs Temp Pulse Resp BP Pulse Ox 12/10/17 08:00 59 L 16 12/10/17 07:56 97.6 F 59 L 16 134/64 98 12/10/17 04:20 98.4 F 52 L 17 146/71 97 12/09/17 23:50 98.2 F 60 17 131/84 100 12/09/17 19:45 98.6 F 60 18 131/69 96 12/09/17 16:45 98.2 F 60 20 129/61 98 12/09/17 12:41 55 L 18 12/09/17 12:30 97.5 F L 55 L 18 125/62 97 12/09/17 11:19 66 18 145/60 97 12/09/17 09:23 84 16 127/60 97 Intake and Output 12/09/17 12/10/17 12/10/17 22:59 06:59 14:59 Intake Total 1100 466.64 Balance 1100 466.64 Intake: Intake, IV Titration 1000 226.64 Amount Heparin Sodium,Porcine/ 226.64 D5w Pmx 25,000 unit In Dextrose/Water 1 500ml. bag @ 12 UNITS/KG/HR 12. 51 mls/hr IV .Q24H RYAN Rx #:[id number] Sodium Chloride 0.9% 1, 1000 000 ml @ 999 mls/hr IV . Q1H1M STA Rx#:[id number] Oral 100 240 Other: # Voids 1 2 Weight 55.2 kg PHYSICAL EXAMINATION: HEENT: Head is atraumatic, normocephalic. Pupils equal, round. Neck is supple. There is no elevated jugular venous pressure. HEART EXAMINATION: Heart S1, S2 normal. No murmur or gallop heard. CHEST EXAMINATION: Lungs are clear to auscultation and precussion. No chest wall tenderness is noted on palpation or with deep breathing. ABDOMEN: Soft, nontender. Bowel sounds are heard. No organomegaly noted. EXTREMITIES: 2+ peripheral pulses with no evidence of peripheral edema and no calf tenderness noted. NEUROLOGIC patient is awake, alert and oriented -3. . Results 12/10/17 05:21 12/10/17 05:21 Cardiac Enzymes 12/09/17 12/09/17 Range/Units 08:38 14:39 CK-MB (CK-2) 1.4 1.1 (0.0-2.4) ng/mL Troponin I 0.080 H* 0.045 H* (0.000-0.034) ng/mL Coagulation 12/09/17 12/09/17 12/10/17 Range/Units 11:01 16:31 05:21 APTT 64.3 H 52.7 H 34.3 H (22.0-30.0) sec Lipids 12/10/17 Range/Units 05:21 Triglycerides 67 (<150) mg/dL Cholesterol 157 (<200) mg/dL HDL Cholesterol 65 H (40-60) mg/dL CBC 12/09/17 12/10/17 Range/Units 08:47 05:21 WBC 6.1 (3.8-10.6) k/uL RBC 4.36 (3.80-5.40) m/uL Hgb 13.4 (11.4-16.0) gm/dL Hct 41.0 (34.0-46.0) % Plt Count 116 L 103 L (150-450) k/uL Comprehensive Metabolic Panel 12/10/17 Range/Units 05:21 Sodium 141 (137-145) mmol/L Potassium 3.8 (3.5-5.1) mmol/L Chloride 108 H (98-107) mmol/L Carbon Dioxide 22 (22-30) mmol/L BUN 15 (7-17) mg/dL Creatinine 0.67 (0.52-1.04) mg/dL Glucose 79 (74-99) mg/dL Calcium 8.2 L (8.4-10.2) mg/dL Current Medications Generic Name Dose Route Start Last Admin Trade Name Freq PRN Reason Stop Dose Admin Aspirin 325 mg 12/10/17 09:00 Aspirin PO DAILY [facility] Atorvastatin Calcium 40 mg 12/09/17 21:00 12/09/17 20:40 Lipitor PO 40 mg BID RYAN Administration Heparin Sodium (Porcine) 0 unit 12/09/17 04:01 Heparin IV Q6HR PRN Low PTT Protocol Heparin Sodium/Dextrose 25,000 500 mls @ 12.51 mls/hr 12/09/17 04:15 06:02 unit/ IV Solution IV Not Given .Q24H RYAN Protocol 12 UNITS/KG/HR Metoprolol Tartrate 25 mg 12/09/17 12:45 12/09/17 20:40 Lopressor PO 25 mg BID RYAN Administration Miscellaneous Information 1 each 12/09/17 03:01 12/09/17 05:11 Rx Info: Iv Contrast Was Given MISCELLANE 12/11/17 03:01 1 each DAILY PRN Administration Per Protocol Nitroglycerin 0.4 mg 12/09/17 04:01 Nitrostat SUBLINGUAL Q5M PRN Chest Pain Pantoprazole Sodium 40 mg 12/10/17 07:30 12/10/17 05:59 Protonix PO 40 mg AC-BRKFST RYAN Administration Intake and Output 12/09/17 12/10/17 12/10/17 22:59 06:59 14:59 Intake Total 1100 466.64 Balance 1100 466.64 Intake: Intake, IV Titration 1000 226.64 Amount Heparin Sodium,Porcine/ 226.64 D5w Pmx 25,000 unit In Dextrose/Water 1 500ml. bag @ 12 UNITS/KG/HR 12. 51 mls/hr IV .Q24H RYAN Rx #:[id number] Sodium Chloride 0.9% 1, 1000 000 ml @ 999 mls/hr IV . Q1H1M STA Rx#:[id number] Oral 100 240 Other: # Voids 1 2 Weight 55.2 kg 12/10/17 05:21 12/10/17 05:21 EKG Interpretations (text) Initial EKG shows atrial fibrillation with rapid ventricular response. Subsequent EKG shows a sinus bradycardia with PACs and ST-T wave changes noted in the anterior leads. Assessment and Plan Plan: Assessment and plan #1 chest pressure and heaviness with radiation to the back and bilateral shoulders, symptoms could be secondary to atrial fibrillation with rapid ventricular response, but cannot rule out acute coronary syndrome. Initial EKG showed atrial fibrillation with rapid ventricular response, subsequent EKG shows a sinus bradycardia with anterior ST-T wave changes and occasional PACs. Troponins 0.03, 0.08, 0.045. #2 new onset atrial fibrillation, paroxysmal, currently in normal sinus rhythm #3 hypertension #4 hyperlipidemia #5 known history of coronary artery disease with prior stent placement in 2001 in 2001 with subsequent bypass surgery in 2012. Plan We will obtain an echocardiogram with Doppler study. We will also check a TSH level. We will decrease the Lipitor to a daily dosing, decrease aspirin to 81 mg daily. We will also decrease beta hood to 25 mg daily and add amiodarone to the medication regime. As an outpatient we would recommended that the patient undergo stress testing, abnormality in troponin likely secondary to A. fib with RVR. DNP note has been reviewed, I agree with a documented findings and plan of care. Patient was seen and examined.
[2017-12-10] MEDS ORDERED: ASPIRIN 325 MG TAB PO SCH (09:00)
[2017-12-10] MEDS ORDERED: AMIODARONE 200 MG TAB PO SCH (09:45)
--- NOTE | 2017-12-10 10:29 | ECHOF ---
Referral Reason:A.Fib MEASUREMENTS -------- HEIGHT: 162.6 cm WEIGHT: 51.7 kg BP: 125/62 RVIDd: 2.5 cm (< 3.3) IVSd: 1.3 cm (0.6 - 1.1) LVIDd: 3.8 cm (3.9 - 5.3) LVPWd: 0.9 cm (0.6 - 1.1) IVSs: 1.5 cm LVIDs: 2.6 cm LVPWs: 1.3 cm LA Diam: 3.6 cm (2.7 - 3.8) LAESV Index (A-L): 31.52 ml/m Ao Diam: 2.8 cm (2.0 - 3.7) AV Cusp: 1.7 cm (1.5 - 2.6) EPSS: 0.3 cm MV E Chance: 1.13 m/s MV DecT: 139 ms MV A Chance: 0.58 m/s MV E/A Ratio: 1.95 AR PHT: 720 ms RAP: 5.00 mmHg RVSP: 36.49 mmHg MV EF SLOPE: 79.56 mm/s (70 - 150) MV EXCURSION: 1.33 cm (> 18.000) FINDINGS -------- Atrial fibrillation. This was a technically good study. The left ventricular size is normal. There is mild concentric left ventricular hypertrophy. Overa ll left ventricular systolic function is low-normal with, an EF between 50 - 55 %. The right ventricle is normal in size. LA is midly dilated 29-33ml/m2. The right atrium is normal in size. There is mild aortic valve sclerosis. There is mild aortic regurgitation. The mitral valve leaflets are mildly thickened. Mild mitral regurgitation is present. Moderate tricuspid regurgitation present. There is mild pulmonary hypertension. The right ventric ular systolic pressure, as measured by Doppler, is 36.49mmHg. Trace/mild (physiologic) pulmonic regurgitation. The aortic root size is normal. Normal inferior vena cava with normal inspiratory collapse consistent with estimated right atrial pre ssure of 5 mmHg. There is no pericardial effusion. CONCLUSIONS -------- 1. Atrial fibrillation. 2. This was a technically good study. 3. The left ventricular size is normal. 4. There is mild concentric left ventricular hypertrophy. 5. Overall left ventricular systolic function is low-normal with, an EF between 50 - 55 %. 6. The right ventricle is normal in size. 7. LA is midly dilated 29-33ml/m2. 8. The right atrium is normal in size. 9. There is mild aortic valve sclerosis. 10. There is mild aortic regurgitation. 11. The mitral valve leaflets are mildly thickened. 12. Mild mitral regurgitation is present. 13. Moderate tricuspid regurgitation present. 14. There is mild pulmonary hypertension. 15. The right ventricular systolic pressure, as measured by Doppler, is 36.49mmHg. 16. Trace/mild (physiologic) pulmonic regurgitation. 17. The aortic root size is normal. 18. Normal inferior vena cava with normal inspiratory collapse consistent with estimated right atrial pressure of 5 mmHg. 19. There is no pericardial effusion. HEAD NECK SURGEON: AGNIESZKA Dave
[2017-12-10] MEDS ORDERED: APIXABAN 2.5 MG TABLET PO SCH (11:30)
--- NOTE | 2017-12-10 13:18 | P.PN ---
Subjective Progress Note Date: 12/10/17 Principal diagnosis: New onset atrial fibrillation Consult dated 12/09/2017 This is an 79-year-old female sees my partner is her primary. She presented to the emergency department for rapid heartbeat and palpitations and chest pain which seemed to radiate to the back. She apparently was discovered to have a new onset atrial fibrillation with rapid ventricular response. States that she was short of breath as well. Does have a history of previous bypass grafting in 2012. Since that time, the patient was started on medication to control her heart rhythm and rate she's feeling much better. She was hoping to be able to be discharged issues things that she needs to do. She apparently was planning a luncheon for a friend today. She has a history of coronary artery disease, status post bypass grafting hyperlipidemia hypertension left breast cancer varicose veins and multiple surgeries including heart catheterization with stent bypass grafting mastectomy hernia repair and orthopedic procedures including left hip replacement. Social history negative for tobacco use. Chest x-ray in the emergency department showed mostly normal findings with minimal interstitial changes and CAT scan was negative for pulmonary embolism but did in fact show some minimal basilar interstitial changes consistent with possible mild pulmonary fibrosis. On 12/10/2017 patient seen again in follow-up on selective care unit. She is in sinus rhythm with a controlled rate, remains on heparin drip at 12 units per kilo per hour. Denies any chest pain, denies any dyspnea or palpitations. Lung sounds Are clear to auscultation. She is on room air, with O2 sat 98%, hemodynamically stable. Labs have been reviewed. 2-D echocardiogram completed and showed overall preserved left ventricular systolic function with an EF between 50-55%, mild pulmonary hypertension with right ventricular systolic pressure of 36 mmHg, Mild aortic valve sclerosis, and mild aortic regurgitation , mild MR, and trace pulmonic regurgitation. Patient has been started on amiodarone, patient was recommended to undergo stress testing per cardiology. From pulmonary standpoint patient remains stable, and discharged home is anticipated once cleared by cardiology. Objective - Vital Signs Vital signs: Vital Signs Temp 97.6 F 12/10/17 07:56 Pulse 59 L 12/10/17 08:00 Resp 16 12/10/17 08:00 BP 134/64 12/10/17 07:56 Pulse Ox 98 12/10/17 07:56 Intake & Output 0512/10/17 12/10/17 18:59 06:59 18:59 Intake Total 1184.651 466.64 120 Output Total 300 Balance 1184.651 466.64 -180 Weight 52 kg 55.2 kg Intake: Intake, IV Titration 1084.651 226.64 Amount Heparin Sodium,Porcine/ 84.651 226.64 D5w Pmx 25,000 unit In Dextrose/Water 1 500ml. bag @ 12 UNITS/KG/HR 12. 51 mls/hr IV .Q24H RYAN Rx #:[id number] Sodium Chloride 0.9% 1, 1000 000 ml @ 999 mls/hr IV . Q1H1M STA Rx#:[id number] Oral 100 240 120 Output: Urine 300 Other: # Voids 2 - Exam No acute distress, oriented 3. HEENT examination is grossly unremarkable. Mucous membranes are moist. No oral lesions. Neck supple. Full range of motion. No adenopathy thyromegaly or neck vein distention. Cardiovascular examination reveals regular rhythm rate. S1-S2 normal. No S3 or S4. No discernible murmur noted. She is in sinus rhythm. Lungs reveal clear breath sounds. Her sounds are equal bilaterally. No adventitious lung sounds including wheezes rhonchi or crackles. Abdomen soft bowel sounds are heard. No masses or tenderness. Extremities are intact. No cyanosis clubbing or edema. Skin is without rash or lesion. Neurologic examination is brief but nonfocal. - Labs CBC & Chem 7: 12/10/17 05:21 12/10/17 05:21 Labs: Abnormal Lab Results - Last 24 Hours (Table) 12/09/17 12/09/17 12/10/17 Range/Units 14:39 16:31 05:21 Plt Count 103 L (150-450) k/uL APTT 52.7 H (22.0-30.0) sec Chloride (98-107) mmol/L Calcium (8.4-10.2) mg/dL Troponin I 0.045 H* (0.000-0.034) ng/mL HDL Cholesterol (40-60) mg/dL 12/10/17 12/10/17 Range/Units 05:21 05:21 Plt Count (150-450) k/uL APTT 34.3 H (22.0-30.0) sec Chloride 108 H (98-107) mmol/L Calcium 8.2 L (8.4-10.2) mg/dL Troponin I (0.000-0.034) ng/mL HDL Cholesterol 65 H (40-60) mg/dL Assessment and Plan Plan: Assessment: New-onset atrial fibrillation History of CAD, status post bypass grafting and stent placement History of breast cancer, status post left mastectomy Hyperlipidemia Hypertension Multiple orthopedic procedures Lifelong nonsmoker Status post left inguinal hernia repair Status post left hip replacement Mild interstitial lung disease/pulmonary fibrosis by chest x-ray/computed tomography scan. Plan: Plan dated 12/09/2017 From the pulmonary standpoint, the patient's very stable. We'll await cardiology's input. The patient has converted from atrial fibrillation back into sinus rhythm. She remains on a heparin drip. Additional recommendations and suggestions are forthcoming. She will need follow-up with Dr. Umana post discharge as he is her primary doctor. Plan dated 12/10/2017 Patient remains stable from pulmonary standpoint, remains in sinus rhythm, denies any dyspnea, denies chest pain. Patient will follow up with cardiology for an outpatient stress test. Able for discharge from pulmonary standpoint. I performed a history & physical examination of the patient and discussed their management with my nurse practitioner, Becka Soriano. I reviewed the nurse practitioner's note and agree with the documented findings and plan of care. Lung sounds are clear. The findings and the impression was discussed with the patient. I attest to the documentation by the nurse practitioner. Time with Patient: Less than 30
[2017-12-10] MEDS ORDERED: ATORVASTATIN 40 MG TAB PO SCH (21:00)
--- NOTE | 2017-12-10 21:50 | P.DS ---
Providers Date of admission: 12/09/17 04:01 Attending physician: Miriam Elena Consults: 12/09/17 04:01 Consult Physician Urgent Consulting Provider: Braden Umana Consult Reason/Comments: known Do you want consulting provider notified?: Yes 12/09/17 10:32 Consult Physician Routine Consulting Provider: Jourdan Tovar Consult Reason/Comments: cp, elevated troponin Do you want consulting provider notified?: Yes Primary care physician: Braden Umana Hospital Course: Discharge diagnosis -Atrial fibrillation with rapid and regular rate new onset presently rate controlled after Cardizem patient will be started on metoprolol 25 twice a day. -Possible non-ST elevation myocardial infarction or mild elevation of troponin secondary to atrial fibrillation, Recommended stress testing as per cardiology team. -H/oh Coronary artery disease with history of CABG in the past -Breast cancer status post mastectomy -Pulmonary fibrosis without any oxygen requirement at home -Hyperlipidemia, continue with same treatment -Hypertension, continue with same treatment Hospital course 87-year-old pleasant female came in with complaints of chest pressure like sensation of one day duration. Patient on admission found to have A. fib with RVR. Patient was evaluated by airline captain and her heart rate is controlled on metoprolol 25 mg plus amiodarone 400 mg twice a day, patient also was started on anticoagulant. Patient her chest pressure-like symptoms are resolved now, no more dyspnea no more dizziness or any other symptoms. However patient's has high troponin on admission which were thought due to A. fib with RVR, however CAD cannot be ruled out completely and cardiology team recommended stress as an outpatient, discussed with patient and the daughter at bedside about this recommendation and the agreed to make a morning appointment with the airline captain office in a week. Patient also evaluated by pulmonary team, Consulted patient does have history of pulmonary fibrosis CT angios of the chest is showing pulmonary fibrosis without any other significant changes or pulmonary embolism. informed pt and duaghter pt needs cardiology f/u ,and they agree Patient was cleared by cardiology and pulmonary team for discharge Patient and Daughter were updated about treatment plan and follow up recommendation and they verbalized understanding and acceptance Patient was found stable and can be discharged home however she needs follow-up as an outpatient and she agrees Physical exam Gen.: Patient is a pleasant, awake, AAA OX3, not in distress CVS: S1-S2, RRR, no murmur Lung: B/L CTA, no wheezing Abdomen: Soft, no distention, no tenderness, positive bowel sounds Extremities: No edema or induration Patient Condition at Discharge: Fair Plan - Discharge Summary Discharge Rx Participant: Yes New Discharge Prescriptions: New Amiodarone [Cordarone] 400 mg PO BID #60 tab Aspirin 81 mg PO DAILY #30 chew Atorvastatin [Lipitor] 40 mg PO HS #30 tab Metoprolol Tartrate [Lopressor] 25 mg PO DAILY #60 tab Apixaban [Eliquis] 2.5 mg PO BID #60 tablet Continue Vit A/Vit C/Vit E/Zinc/Copper [ICAPS SOFTGEL] 1 tab PO DAILY Ubidecarenone [Coq-10] 200 mg PO DAILY Lansoprazole [Prevacid] 30 mg PO QAM Fish Oil/Fat No.8/Hrb Comb.137 [[place] 3-6-9 1,200 mg Softgel] 1,200 mg PO DAILY Atorvastatin [Lipitor] 40 mg PO BID Aspirin 81 mg PO DAILY Cyanocobalamin (Vitamin B-12) [Vitamin B-12] 1,000 mcg PO DAILY Ascorbic Acid [Vitamin C] 1,000 mg PO DAILY Calcium Carbonate [Calcium] 600 mg PO BID Discontinued Atenolol [Tenormin] 12.5 mg PO DAILY Discharge Medication List Aspirin 81 mg PO DAILY 03/15/14 [History] Atorvastatin [Lipitor] 40 mg PO BID 03/15/14 [History] Fish Oil/Fat No.8/Hrb Comb.137 [[place] 3-6-9 1,200 mg Softgel] 1,200 mg PO DAILY 03/15/14 [History] Lansoprazole [Prevacid] 30 mg PO QAM 03/15/14 [History] Ubidecarenone [Coq-10] 200 mg PO DAILY 03/15/14 [History] Vit A/Vit C/Vit E/Zinc/Copper [ICAPS SOFTGEL] 1 tab PO DAILY 03/15/14 [History] Ascorbic Acid [Vitamin C] 1,000 mg PO DAILY 01/24/17 [History] Cyanocobalamin (Vitamin B-12) [Vitamin B-12] 1,000 mcg PO DAILY 01/24/17 [ History] Calcium Carbonate [Calcium] 600 mg PO BID 12/09/17 [History] Amiodarone [Cordarone] 400 mg PO BID #60 tab 12/10/17 [Rx] Apixaban [Eliquis] 2.5 mg PO BID #60 tablet 12/10/17 [Rx] Aspirin 81 mg PO DAILY #30 chew 12/10/17 [Rx] Atorvastatin [Lipitor] 40 mg PO HS #30 tab 12/10/17 [Rx] Metoprolol Tartrate [Lopressor] 25 mg PO DAILY #60 tab 12/10/17 [Rx] Follow up Appointment(s)/Referral(s): Braden Umana MD [Primary Care Provider] - 12/15/17 10:30 am Dav Miller MD [STAFF PHYSICIAN] - 12/22/17 10:30 am (Thursday) Patient Instructions/Handouts: A-fib (Atrial Fibrillation) (DC), Chest Pain (ED ) Discharge Disposition: HOME SELF-CARE
[2017-12-11] MEDS ORDERED: ASPIRIN 81 MG PO SCH (09:00)
[2017-12-11] MEDS ORDERED: METOPROLOL TARTRATE 25 MG TAB PO SCH (09:00)
== END 2017-12-10 16:00 | disposition home or self-care (01) | DRG 282 ==
LOC: EC 01:58 → 6SEL 04:01
PROVIDERS: ADMIT Hospitalist; ATTEND Hospitalist
DX: I48.0 Paroxysmal atrial fibrillation (principal); I21.4 Non-ST elevation (NSTEMI) myocardial infarction; I27.20 Pulmonary hypertension, unspecified; J84.10 Pulmonary fibrosis, unspecified; E78.5 Hyperlipidemia, unspecified; I10 Essential (primary) hypertension; I08.0 Rheumatic disorders of both mitral and aortic valves; I25.10 Atherosclerotic heart disease of native coronary artery without angina pectoris; Z95.1 Presence of aortocoronary bypass graft; Z79.82 Long term (current) use of aspirin; Z79.899 Other long term (current) drug therapy; Z88.5 Allergy status to narcotic agent; I83.90 Asymptomatic varicose veins of unspecified lower extremity; Z85.3 Personal history of malignant neoplasm of breast; Z90.12 Acquired absence of left breast and nipple; Z95.5 Presence of coronary angioplasty implant and graft; Z96.642 Presence of left artificial hip joint; Z80.0 Family history of malignant neoplasm of digestive organs; Z80.3 Family history of malignant neoplasm of breast
CPT/HCPCS: 36415; 71046; 71275; 80048; 80053; 80061; 82550; 82553; 83690; 83735; 83880; 84443; 84484; 85025; 85027; 85049; 85379; 85610; 85730; 93005; 93306; 96360; 96365; 96366; 96376; 99291

== ENCOUNTER 2018-04-26 17:59 | Emergency (ER) | payer MEDICARE ==
--- NOTE | 2018-04-26 20:04 | US ---
EXAMINATION TYPE: US venous doppler duplex LE RT DATE OF EXAM: 04/26/2018 7:05 PM COMPARISON: NONE CLINICAL HISTORY: Pain. Right leg swelling. SIDE PERFORMED: Right TECHNIQUE: The lower extremity deep venous system is examined utilizing real time linear array sonog venita with graded compression, doppler sonography and color-flow sonography. VESSELS IMAGED: External Iliac Vein (EIV) Common Femoral Vein Deep Femoral Vein Greater Saphenous Vein * Femoral Vein Popliteal Vein Small Saphenous Vein * Proximal Calf Veins (* superficial vessels) Right Leg: Negative for DVT No evidence of DVT right leg. IMPRESSION: Normal exam.
--- NOTE | 2018-04-26 20:19 | ED ---
Lower Extremity Injury HPI - General Chief Complaint: Extremity Injury, Lower Stated Complaint: Poss blood clot Time Seen by Provider: 04/26/18 19:04 Source: patient, RN notes reviewed, old records reviewed Mode of arrival: ambulatory Limitations: no limitations - History of Present Illness Initial Comments: This is an 88-year-old female the ER for evaluation of possible DVT. Patient currently going through outpatient treatment for cellulitis, patient does have ulcer to right lower extremity from positive injury. Patient states that she denies any fevers, has no calf pain both in the ER to be evaluated regarding significant injury. DVT. Patient has no history of DVT or PE Complaint: leg injury (Right leg ulcer) -: week(s) Injury: Leg: Right (Erythema and swelling) Place: home Severity: mild Severity scale (1-10): 3 (Edema) Worsens With: nothing Context: direct blow (Causing ulcer) - Related Data Home Medications Medication Instructions Recorded Confirmed Lansoprazole [Prevacid] 30 mg PO QAM 03/15/14 04/26/18 Ubidecarenone [Coq-10] 200 mg PO DAILY 03/15/14 04/26/18 Vit A/Vit C/Vit E/Zinc/Copper 1 cap PO BID 03/15/14 04/26/18 [ICAPS SOFTGEL] Ascorbic Acid [Vitamin C] 1,000 mg PO DAILY 01/24/17 04/26/18 Calcium Carbonate [Calcium] 600 mg PO BID 12/09/17 04/26/18 Amiodarone [Cordarone] 200 mg PO BID 04/26/18 04/26/18 Previous Rx's Medication Instructions Recorded Apixaban [Eliquis] 2.5 mg PO BID #60 tablet 12/10/17 Aspirin 81 mg PO DAILY #30 chew 12/10/17 Atorvastatin [Lipitor] 40 mg PO HS #30 tab 12/10/17 Metoprolol Tartrate [Lopressor] 25 mg PO DAILY #60 tab 12/10/17 Allergies Allergy/AdvReac Type Severity Reaction Status Date / Time codeine Allergy Unknown Verified 04/26/18 19:58 Review of Systems ROS Statement: Those systems with pertinent positive or pertinent negative responses have been documented in the HPI. ROS Other: All systems not noted in ROS Statement are negative. Past Medical History Past Medical History: Atrial Fibrillation, Coronary Artery Disease (CAD), Cancer , Hyperlipidemia, Hypertension Additional Past Medical History / Comment(s): HX VARICOSE VEINS, LEFT BREAST CA History of Any Multi-Drug Resistant Organisms: None Reported Past Surgical History: Breast Surgery, Coronary Bypass/CABG, Heart Catheterization With Stent, Hernia Repair, Orthopedic Surgery Additional Past Surgical History / Comment(s): CABG X4, INGUINAL HERNIA REPAIR, LEFT MASTECTOMY, L hip replacement. 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 Absent: scleral icterus, conjunctival injection, periorbital swelling ENT exam: Present: normal exam, mucous membranes moist Neck exam: Present: normal inspection. Absent: tenderness, meningismus, lymphadenopathy Respiratory exam: Present: normal lung sounds bilaterally. Absent: respiratory distress, wheezes, rales, rhonchi, stridor Cardiovascular Exam: Present: regular rate, normal rhythm, normal heart sounds. Absent: systolic murmur, diastolic murmur, rubs, gallop, clicks GI/Abdominal exam: Present: soft, normal bowel sounds. Absent: distended, tenderness, guarding, rebound, rigid Extremities exam: Present: normal inspection, full ROM, normal capillary refill. Absent: tenderness, pedal edema, joint swelling, calf tenderness Back exam: Present: normal inspection Neurological exam: Present: alert, oriented X3, CN II-XII intact Psychiatric exam: Present: normal affect, normal mood Skin exam: Present: warm, dry, intact, normal color. Absent: rash Course Vital Signs 04/26/18 04/26/18 18:51 20:29 Temperature 98.2 F 98.3 F Pulse Rate 57 L 56 L Respiratory 18 16 Rate Blood Pressure 157/70 155/73 O2 Sat by Pulse 98 100 Oximetry - Reevaluation(s) Reevaluation #1: Family's consults regarding low likelihood of infection, we'll continue outpatient therapy, patient has gone through antibiotics with significant improvement infectious state Medical Decision Making - Medical Decision Making 88 female the ER with right lower extremity edema, patient has no significant evidence of infection or DVT. Patient will be discharged home - Radiology Data Radiology results: report reviewed (Ultrasound is negative for DVT), image reviewed Disposition Clinical Impression: Left leg cellulitis, Leg edema, left Disposition: HOME SELF-CARE Condition: Good Instructions: Cellulitis (ED), Leg Edema (ED) Is patient prescribed a controlled substance at d/c from ED?: No Referrals: Braden Umana MD [Primary Care Provider] - 1-2 days
[2018-04-26 20:30] VITALS: BP 155/73; PULSE 56; RESP 16; TEMP 98.3
== END 2018-04-26 20:29 | disposition home or self-care (01) ==
LOC: EC 17:59
DX: L03.115 Cellulitis of right lower limb (principal); R60.0 Localized edema; I25.10 Atherosclerotic heart disease of native coronary artery without angina pectoris; I48.91 Unspecified atrial fibrillation; Z85.3 Personal history of malignant neoplasm of breast; Z95.1 Presence of aortocoronary bypass graft; Z95.5 Presence of coronary angioplasty implant and graft; Z90.12 Acquired absence of left breast and nipple; Z96.642 Presence of left artificial hip joint; Z98.890 Other specified postprocedural states; Z79.899 Other long term (current) drug therapy; Z88.5 Allergy status to narcotic agent
CPT/HCPCS: 99284

== ENCOUNTER → 2018-05-26 | Outpatient (CLI) | payer MEDICARE | END | disposition home or self-care (01) | LOC: RADUSWWP 13:39 | PROVIDERS: ATTEND Family Medicine | DX: M79.604 Pain in right leg (principal); I87.2 Venous insufficiency (chronic) (peripheral) | CPT/HCPCS: 93923 ==

== ENCOUNTER → 2018-05-27 | Outpatient (CLI) | payer MEDICARE ==
[2018-05-27 12:23] VITALS: BP 139/63; PULSE 50; RESP 16; TEMP 96.5; BMI 19.8
--- NOTE | 2018-05-27 12:37 | P.GSHP ---
History of Present Illness H&P Date: 05/27/18 Chief Complaint: fibrocystic breast The patient is an 88 year old white female with a recent mammogram on which was felt to be benign. She is BIRADS 2 follow up in 1 year. No masses in her breast. No nipple discharge or skin changes. The patient is here for a breast exam. She is status post a left breast mastecomy in 1993. No radiation, chemo., or hormonal therapy. Family History: 1. patient: breast cancer left/mastecomy 1993 2. father: colon 3. brother: colon 4. brother: lung 5. sister: breast (dx. @ 70) Hormonal History; menarche: 12 : 2, children 2, breast fed; yes; first born at 26 menopause: 49 BCP: none hormones: none Past surgical history 1. Left mastectomy 2. Hip surgery 3. Coronary artery bypass grafting Past medical history: none Social History: smoke: none alcohol: none drugs: none - Constitutional Constitutional: Denies chills, Denies fever - EENT Comment: goes to eye q three months, dry eyes Eyes: bilateral dry eye, denies pain Ears: bilateral: decreased hearing (has hearing aids), deny: tinnitus Ears, nose, mouth and throat: Denies headache, Denies sore throat - Breasts Breasts: bilateral: as per HPI - Cardiovascular Comment: atrial fibrillation - Respiratory Respiratory: Denies cough, Denies 7 - Gastrointestinal Gastrointestinal: Denies abdominal pain, Denies diarrhea, Denies nausea, Denies vomiting - Genitourinary (Female) Genitourinary: Denies dysuria, Denies hematuria - Menstruation Menstruation: Reports postmenopausal - Musculoskeletal Comment: left hip surgery - Integumentary Comment: wound right lateral leg goes to wound clinic q week Integumentary: Denies pruritus, Denies rash - Neurological Neurological: Denies numbness, Denies weakness - Psychiatric Psychiatric: Denies anxiety, Denies depression - Endocrine Endocrine: Denies fatigue, Denies weight change - Hematologic/Lymphatic Comment: eliquis, and baby aspirin - Allergic/Immunologic Comment: codeine Past Medical History Past Medical History: Atrial Fibrillation, Coronary Artery Disease (CAD), Cancer , Hyperlipidemia, Hypertension Additional Past Medical History / Comment(s): HX VARICOSE VEINS, LEFT BREAST CA History of Any Multi-Drug Resistant Organisms: None Reported Past Surgical History: Breast Surgery, Coronary Bypass/CABG, Heart Catheterization With Stent, Hernia Repair, Orthopedic Surgery Additional Past Surgical History / Comment(s): CABG X4, INGUINAL HERNIA REPAIR, LEFT MASTECTOMY, L hip replacement. Past Anesthesia/Blood Transfusion Reactions: No Reported Reaction Date of Last Stent Placement:: UNKNOWN Smoking Status: Never smoker - Past Family History Father Brother(s) Family Medical History: Cancer Additional Family Medical History / Comment(s): COLON Sister(s) Family Medical History: Cancer Additional Family Medical History / Comment(s): COLON, BREAST Father Family Medical History: Cancer Mother Family Medical History: No Reported History Medications and Allergies Home Medications Medication Instructions Recorded Confirmed Type Lansoprazole [Prevacid] 30 mg PO QAM 03/15/14 05/27/18 History Ubidecarenone [Coq-10] 200 mg PO DAILY 03/15/14 05/27/18 History Vit A/Vit C/Vit E/Zinc/Copper 1 cap PO BID 03/15/14 05/27/18 History [ICAPS SOFTGEL] Ascorbic Acid [Vitamin C] 1,000 mg PO DAILY 01/24/17 05/27/18 History Calcium Carbonate [Calcium] 600 mg PO BID 12/09/17 05/27/18 History Apixaban [Eliquis] 2.5 mg PO BID #60 tablet 12/10/17 05/27/18 Rx Aspirin 81 mg PO DAILY #30 chew 12/10/17 05/27/18 Rx Atorvastatin [Lipitor] 40 mg PO HS #30 tab 12/10/17 05/27/18 Rx Metoprolol Tartrate [Lopressor] 25 mg PO DAILY #60 tab 12/10/17 05/27/18 Rx Amiodarone [Cordarone] 200 mg PO BID 04/26/18 05/27/18 History Eye Cap 1 cap PO BID 05/13/18 05/27/18 History Allergies Allergy/AdvReac Type Severity Reaction Status Date / Time codeine Allergy Unknown Verified 05/27/18 12:15 Surgical - Exam HR: 50 BP: 139/63 O 96% R: 16 temp: 96.5 BMI 19.8 - General well developed, well nourished, no distress - Eyes normal ocular movement - ENT no hearing loss, no congestion - Neck no masses, trachea midline - Respiratory normal respiratory effort, clear to auscultation - Cardiovascular Heart Sounds: normal: S1, S2 - Abdomen Abdomen: soft - Integumentary normal turger - Neurologic no disoriented, no combative - Musculoskeletal normal gait, normal posture - Psychiatric oriented to time, oriented to person, oriented to place, speech is normal, memory intact Breast examination: Right breast: Multiple positional exam no dominant masses or nodules of concern Right axilla: No adenopathy of concern Left chest wall: Well-healed scar from prior mastectomy no evidence of recurrent disease Left axilla: No adenopathy of concern Results right breast mammogram no lesions of concern Assessment and Plan Assessment: Impression: 1. Fibrocystic breast changes right breast 2. Left mastectomy no evidence of recurrent cancer 3. History of atrial fibrillation Plan: 1. Continue surveillance repeat right breast mammogram in 1 year 2. Follow-up examination in 1 year CC: Dr. Umana
== END | disposition home or self-care (01) ==
LOC: WWCWWP 11:30
PROVIDERS: ATTEND Surgery
DX: Z53.9 Procedure and treatment not carried out, unspecified reason (principal)

== ENCOUNTER → 2018-09-02 | Outpatient (CLI) | payer MEDICARE ==
[2018-09-02 09:24] LABS: Albumin 3.8 g/dL (3.5-5.0); Calcium 9.5 mg/dL (8.4-10.2); Potassium 4.5 mmol/L (3.5-5.1); Total Bilirubin 0.6 mg/dL (0.2-1.3); Total Protein 7.7 g/dL (6.3-8.2)
--- NOTE | 2018-09-02 09:49 | CT ---
EXAMINATION TYPE: CT chest wo con DATE OF EXAM: 09/02/2018 COMPARISON: 12/09/2017 HISTORY: ILD. Shortness of breath. CT DLP: 104 mGycm. Automated Exposure Control for Dose Reduction was Utilized. TECHNIQUE: CT scan of the thorax is performed without IV contrast. High-resolution chest CT protocol limits evaluation for pulmonary nodule given noncontiguous slices. FINDINGS: LUNGS: Subpleural reticular nodular opacities predominating in a peripheral basilar distribution. The more nodular component such as at the left lung base on series 4 image 52 measuring 1.2 x 1.0 cm are new from the prior of 12/09/2017. Other nodular components are seen within the left lung base on seri es 4 image 49 measuring 1.2 x 0.7 cm and within the left lower lung measuring 5 mm on series 4 image 32. Right basilar nodular component measures approximately 0.6 x 0.7 cm on series 4 image 56. Other s maller nodular components are seen on series 4 image 45 in the right lower lobe and marked on the troy ges. Some bandlike opacities represent pleural parenchymal scarring. There is mild cylindrical bibasi lar bronchiectasis. Few patchy groundglass opacities are seen subpleural in location such as within t he anterior left upper lobe on series 4 image 23. There are calcified biapical pleural plaques and pl eural parenchymal scarring. No honeycombing is noted. Main tracheobronchial tree is patent and main stem bronchi are mildly enlarged. Supine images demonst rate similar findings as prone images. Therefore findings are nondependent. MEDIASTINUM: Lack of IV contrast is noted to limit evaluation for mediastinal and especially hilar ad enopathy. There are no definitive greater than 1 cm hilar or mediastinal lymph nodes. Moderate athero sclerosis of the thoracic aorta is seen in the ascending and aortic arch however severe atheroscleros is is seen of the descending thoracic aorta. Severe telida coronary artery calcifications and post CA BG changes are seen. Heart is nonenlarged. Small hiatal hernia is seen. Left axillary surgical clips are noted. Left mastectomy has been performed. OTHER: Ectasia of the upper abdominal aorta measures 2.7 x 2.6 cm. IMPRESSION: 1. Interstitial lung disease that has the appearance of early phase of nonspecific interstitial pneum onitis. No definitive features of fibrotic or cellular type on this examination. Given the multiple n odular components new from the prior of 12/09/2017 short-term follow-up is recommended in 3-6 months. 2. Small hiatal hernia.
== END | disposition home or self-care (01) ==
LOC: RADCTMAIN 08:03
PROVIDERS: ATTEND Internal Medicine
DX: J84.9 Interstitial pulmonary disease, unspecified (principal); R91.8 Other nonspecific abnormal finding of lung field; K44.9 Diaphragmatic hernia without obstruction or gangrene
CPT/HCPCS: 36415; 71250; 80053; 80061; 84443

== ENCOUNTER 2019-02-01 16:04 | Emergency (ER) | payer MEDICARE ==
[2019-02-01] MEDS ORDERED: ASPIRIN 81 MG PO STA (17:12)
--- NOTE | 2019-02-01 17:24 | ED ---
Chest Pain HPI - General Chief Complaint: Chest Pain Stated Complaint: Chest Pain Time Seen by Provider: 02/01/19 17:11 Source: patient Mode of arrival: wheelchair Limitations: no limitations - History of Present Illness Initial Comments: Patient is an 88-year-old female with a history of coronary artery bypass surgery and atrial fibrillation presents with the chief complaint of chest pain. The patient states this started today after lifting heavy boxes. Patient states that she believes the inciting incident however her family convinced her to come in for evaluation. The patient denies any lightheadedness or dizziness, nausea or vomiting, diaphoresis. She states that her chest pain is minor and aggravated with movement. Patient states that she thinks she would be able to walk around the emergency department without any issue. - Related Data Home Medications Medication Instructions Recorded Confirmed Lansoprazole [Prevacid] 30 mg PO DAILY 03/15/14 02/01/19 Ubidecarenone [Coq-10] 200 mg PO DAILY 03/15/14 02/01/19 Ascorbic Acid [Vitamin C] 1,000 mg PO DAILY 01/24/17 02/01/19 Calcium Carbonate [Calcium] 600 mg PO BID 12/09/17 02/01/19 Metoprolol Tartrate [Lopressor] 12.5 mg PO BID 02/01/19 02/01/19 Vit A/Vit C/Vit E/Zinc/Copper 1 cap PO BID 02/01/19 02/01/19 [ICAPS SOFTGEL] Vitamin B Complex 1 cap PO DAILY 02/01/19 02/01/19 diphenhydrAMINE HCL [Benadryl] 25 mg PO HS 02/01/19 02/01/19 Previous Rx's Medication Instructions Recorded Apixaban [Eliquis] 2.5 mg PO BID #60 tablet 12/10/17 Atorvastatin [Lipitor] 40 mg PO HS #30 tab 12/10/17 Allergies Allergy/AdvReac Type Severity Reaction Status Date / Time codeine Allergy Unknown Verified 02/01/19 16:46 Review of Systems ROS Statement: Those systems with pertinent positive or pertinent negative responses have been documented in the HPI. ROS Other: All systems not noted in ROS Statement are negative. Cardiovascular: Reports: chest pain Past Medical History Past Medical History: Atrial Fibrillation, Coronary Artery Disease (CAD), Cancer, Hyperlipidemia, Hypertension Additional Past Medical History / Comment(s): HX VARICOSE VEINS, LEFT BREAST CA History of Any Multi-Drug Resistant Organisms: None Reported Past Surgical History: Breast Surgery, Coronary Bypass/CABG, Heart Catheterization With Stent, Hernia Repair, Orthopedic Surgery Additional Past Surgical History / Comment(s): CABG X4, INGUINAL HERNIA REPAIR, LEFT MASTECTOMY, L hip replacement. Past Anesthesia/Blood Transfusion Reactions: No Reported Reaction Date of Last Stent Placement:: UNKNOWN Past Psychological History: No Psychological Hx Reported Smoking Status: Never smoker Past Alcohol Use History: None Reported Past Drug Use History: None Reported - Past Family History Father Brother(s) Family Medical History: Cancer Additional Family Medical History / Comment(s): COLON Sister(s) Family Medical History: Cancer Additional Family Medical History / Comment(s): COLON, BREAST Father Family Medical History: Cancer Mother Family Medical History: No Reported History General Exam Limitations: no limitations General appearance: alert, in no apparent distress Head exam: Present: atraumatic, normocephalic Eye exam: Present: normal appearance ENT exam: Present: normal exam Neck exam: Present: normal inspection Respiratory exam: Present: normal lung sounds bilaterally. Absent: respiratory distress, wheezes Cardiovascular Exam: Present: regular rate, normal rhythm GI/Abdominal exam: Present: soft, distended, tenderness Rectal exam: Present: deferred External exam: Present: normal external exam Extremities exam: Present: normal inspection. Absent: pedal edema Back exam: Present: normal inspection Neurological exam: Present: alert, oriented X3 Psychiatric exam: Present: normal affect, normal mood Skin exam: Present: warm, dry, intact Course Vital Signs 02/01/19 02/01/19 16:12 17:48 Temperature 98.2 F Pulse Rate 62 63 Respiratory 18 16 Rate Blood Pressure 170/73 165/78 O2 Sat by Pulse 98 97 Oximetry Chest Pain [facility] Patient presents with chief complaint of chest pain. On initial evaluation, vitals are stable, patient is no distress. Patient evaluated basic labs including cardiac enzymes and chest x-ray. She was given aspirin. EKG performed at 1632 shows normal sinus rhythm with a rate of 65 bpm, segment appeared to be within normal limits, no acute signs of ischemia found. 8:41 PM Lab evaluation this patient is unremarkable. Throughout her troponin is negative. On reevaluation, the patient remains comfortable. She is stable for discharge. Patient would prefer to follow up with primary care. She was instructed to someone to 2 days, return to the ED if symptoms worsen or change. Disposition Clinical Impression: Chest pain Disposition: HOME SELF-CARE Condition: Good Instructions (If sedation given, give patient instructions): Costochondritis (ED) Is patient prescribed a controlled substance at d/c from ED?: No Referrals: Braden Umana MD [Primary Care Provider] - 1-2 days
[2019-02-01 17:26] LABS: Basophils % (A) 0 %; Eosinophils # (A) 0.1 k/uL (0-0.7); Eosinophils % (A) 2 %; HCT 39.9 % (34.0-46.0); HGB 12.9 gm/dL (11.4-16.0); Lymphocytes % (A) 28 %; MCH 30.2 pg (25.0-35.0); MCHC 32.4 g/dL (31.0-37.0); MCV 93.3 fL (80.0-100.0); Mean Platelet Volume 8.5; Monocytes # (A) 0.4 k/uL (0-1.0); Monocytes % (A) 6 %; Neutrophils # (A) 4.3 k/uL (1.3-7.7); Neutrophils % (A) 62 %; Platelet Count 133 k/uL (150-450); RBC 4.28 m/uL (3.80-5.40); RDW 14.3 % (11.5-15.5)
[2019-02-01 17:36] LABS: Partial Thromboplastin Time 26.9 sec (22.0-30.0); Prothrombin Time 10.4 sec (9.0-12.0)
[2019-02-01 17:38] LABS: Albumin 4.2 g/dL (3.5-5.0); Magnesium 1.9 mg/dL (1.6-2.3); Total Bilirubin 0.4 mg/dL (0.2-1.3); Total Protein 7.2 g/dL (6.3-8.2)
--- NOTE | 2019-02-01 18:06 | XR ---
EXAMINATION: XR chest 2V DATE AND TIME: 02/01/2019 5:38 PM CLINICAL INDICATION: PHH; Chest Pain TECHNIQUE: Departmental protocol COMPARISON: 12/09/2017 FINDINGS: Sutures and mediastinal clips and EKG leads noted. The lungs are clear. The pleural spaces are negative. The cardiac silhouette is not enlarged. The skeletal structures and soft tissues are negative for acute findings. IMPRESSION: NO ACUTE PROCESS.
[2019-02-01 21:00] VITALS: BP 160/81; PULSE 62; RESP 18; TEMP 97
== END 2019-02-01 20:59 | disposition home or self-care (01) ==
LOC: EC 16:04
DX: R07.9 Chest pain, unspecified (principal); I25.10 Atherosclerotic heart disease of native coronary artery without angina pectoris; I10 Essential (primary) hypertension; Z79.899 Other long term (current) drug therapy; Z88.5 Allergy status to narcotic agent; Z95.1 Presence of aortocoronary bypass graft; Z95.5 Presence of coronary angioplasty implant and graft; Z85.3 Personal history of malignant neoplasm of breast; Z90.12 Acquired absence of left breast and nipple; Z96.642 Presence of left artificial hip joint
CPT/HCPCS: 36415; 71046; 80053; 83735; 83880; 84484; 85025; 85610; 85730; 93005; 99285